=== PATIENT | female | born 1985 | race Caucasian/White ===

== ENCOUNTER 2017-07-04 09:17 | Inpatient (IN) | payer OTHER ==
[~2017-07-04] VITALS: Ht 167.6 cm; Wt 111.0 kg
[2017-07-04] VITALS (16 sets, daily range): BP systolic 106–174; BP diastolic 63–112
[~2017-07-04 09:17] MED LIST: HEMOCYTE324 MG PO; IBUPROFEN800 MG PO; LABETALOL HCL100 MG PO; PRENA1 CHEW TA1.4 MG PO
[2017-07-04 10:32] LABS: BASOPHIL (%) 0.2 % (0-1); EOSINOPHIL (%) 0.9 % (0-5); EOSINOPHIL COUNT 0.1 K/uL (0-0.3); HEMATOCRIT 36.4 % (36.0-46.0); HEMOGLOBIN 12.1 G/DL (11.9-15.5); IMMATURE GRANULOCYTE (%) 0.7 % (0.0-0.7); LYMPHOCYTE (%) 17.2 % (15-42); LYMPHOCYTE COUNT 1.8 K/uL (1.0-2.8); MCH 29.2 PG (29.0-34.0); MCHC 33.2 G/DL (30.0-36.0); MCV 87.9 FL (83-99); MONOCYTE (%) 3.9 % (3-12); MONOCYTE COUNT 0.4 K/uL (0-0.8); NEUTROPHIL (%) 77.1 % (45-76); PLATELET COUNT 307 K/uL (156-360); RBC DIS.WIDTH-CV 13.2 % (11.8-14.6); RBC DIS.WIDTH-SD 42.5 % (39-53); RED BLOOD COUNT 4.14 M/uL (3.80-5.20); WHITE BLOOD COUNT 10.4 K/uL (4.1-10.2)
[2017-07-04 10:56] LABS: ALBUMIN 3.4 G/DL (3.2-4.8); ALKALINE PHOSPHATASE 153 IU/L (3-129); ALT (GPT) 12 IU/L (3-49); AST (GOT) 11 IU/L (2-34); CHLORIDE 107 MEQ/L (99-109); CREATININE 0.5 MG/DL (0.6-1.3); GFR ESTIMATE (CALCULATED) > 59 mL/min/; GLUCOSE 86 mg/dL (70-99); LACTATE DEHYDROGENASE 135 IU/L (20-246); POTASSIUM 3.8 MEQ/L (3.7-5.4); SODIUM 138 MEQ/L (136-147); TOTAL BILIRUBIN 0.2 MG/DL (0.0-1.0); TOTAL PROTEIN 6.5 G/DL (6.4-8.3); UREA NITROGEN (BUN) 9 mg/dL (9-23); URIC ACID 4.7 mg/dL (3.1-9.2)
[2017-07-04 11:03] LABS: UR CREATININE CONCENTRATION 27.1 MG/DL
[2017-07-04] MEDS ORDERED: ASPIRIN81 M2 PO (11:04)
[2017-07-04 20:08] LABS: AMPHETAMINE NEGATIVE (500 ng/mL); BARBITURATES NEGATIVE (200 ng/mL); BENZODIAZEPINES NEGATIVE (150 ng/mL); BUPRENORPHINE NEGATIVE (10 ng/mL); COCAINE NEGATIVE (150 ng/mL); METHADONE NEGATIVE (200 ng/mL); METHAMPHETAMINE NEGATIVE (500 ng/mL); OPIATES (MORPHINE) NEGATIVE (100 ng/mL); OXYCODONE NEGATIVE (100 ng/mL); PHENCYCLIDINE NEGATIVE (25 ng/mL); PROPOXYPHENE NEGATIVE (300 ng/mL); THC CANNABINOIDS NEGATIVE (50 ng/mL); TRICYCLIC ANTIDEPRESSANTS NEGATIVE (300 ng/mL)
[2017-07-05] VITALS (17 sets, daily range): BP systolic 117–148; BP diastolic 68–103
[2017-07-06 00:23] VITALS: BP 118/75
[2017-07-06 04:10] VITALS: BP 110/79
[2017-07-06 06:54] LABS: BASOPHIL (%) 0.4 % (0-1); BASOPHIL COUNT 0.1 K/uL (0-0.1); EOSINOPHIL (%) 0.9 % (0-5); EOSINOPHIL COUNT 0.1 K/uL (0-0.3); HEMATOCRIT 32.6 % (36.0-46.0); HEMOGLOBIN 10.6 G/DL (11.9-15.5); IMMATURE GRANULOCYTE (%) 0.8 % (0.0-0.7); LYMPHOCYTE (%) 16.4 % (15-42); LYMPHOCYTE COUNT 2.2 K/uL (1.0-2.8); MCH 28.6 PG (29.0-34.0); MCHC 32.5 G/DL (30.0-36.0); MCV 88.1 FL (83-99); MONOCYTE (%) 5.1 % (3-12); MONOCYTE COUNT 0.7 K/uL (0-0.8); NEUTROPHIL (%) 76.4 % (45-76); NEUTROPHIL COUNT 10.1 K/uL (1.8-6.4); PLATELET COUNT 272 K/uL (156-360); RBC DIS.WIDTH-SD 42.5 % (39-53); WHITE BLOOD COUNT 13.3 K/uL (4.1-10.2)
[2017-07-06 10:00] VITALS: BP 121/74
[2017-07-06 10:22] VITALS: BP 142/85
[2017-07-06] MEDS ORDERED: IBUPROFEN800 MG PO (12:08)
== END 2017-07-06 16:28 | disposition home or self-care (01) | DRG 775 ==
LOC: LDRP-OP → 2WEST 09:18 → LDRP-OP 08-04 14:21
PROVIDERS: Advanced Practice Midwife
DX: O13.4 Gestational [pregnancy-induced] hypertension without significant proteinuria, complicating childbirth (principal); O66.0 Obstructed labor due to shoulder dystocia; O24.420 Gestational diabetes mellitus in childbirth, diet controlled; O99.02 Anemia complicating childbirth; D64.9 Anemia, unspecified; O99.214 Obesity complicating childbirth; E66.9 Obesity, unspecified; Z68.39 Body mass index [BMI] 39.0-39.9, adult; Z79.82 Long term (current) use of aspirin; Z3A.40 40 weeks gestation of pregnancy; Z37.0 Single live birth
CPT/HCPCS: 80053; 82570; 83615; 84156; 84550; 85025; 85025 91; 86850; 86900; 86901; G0378; J0595; J7120